=== PATIENT | male | born 1980 | race Caucasian/White ===

== ENCOUNTER 2019-05-27 22:33 | Inpatient (IN) | payer MEDICAID, SELFPAY ==
[~2019-05-27] VITALS: Ht 172.7 cm; Wt 82.7 kg
[2019-05-27 23:58] LABS: AMPHETAMINES LEVEL URINE NEGATIVE (NEGATIVE); BARBITURATES URINE NEGATIVE (NEGATIVE); BENZODIAZEPINES URINE NEGATIVE (NEGATIVE); CANNABINOIDS URINE NEGATIVE (NEGATIVE); COCAINE METABOLITE URINE NEGATIVE (NEGATIVE); METHADONE URINE NEGATIVE (NEGATIVE); OPIATES URINE NEGATIVE (NEGATIVE); PHENCYCLIDINE URINE NEGATIVE (NEGATIVE)
[2019-05-28 00:19] LABS: ACETAMINOPHEN LEVEL < 2.0 UG/ML (10.0-30.0); ALT/SGPT 39 U/L (12-78); BILIRUBIN,DIRECT 0.3 MG/DL (0.0-0.2); BILIRUBIN,TOTAL 1.1 MG/DL (0.2-1.0); BLOOD UREA NITROGEN 11 MG/DL (7-18); CALCIUM LEVEL 8.9 MG/DL (8.5-10.1); CARBON DIOXIDE LEVEL 28 MEQ/L (21-32); CHLORIDE LEVEL 105 MEQ/L (98-107); CREATININE FOR GFR 0.78 MG/DL (0.70-1.30); ETHYL ALCOHOL (ETHANOL) < 0.003 % (0.000-0.010); GLOMERULAR FILTRATION RATE > 60.0 (>60); GLUCOSE, FASTING 97 MG/DL (70-100); POTASSIUM SERUM 3.6 MEQ/L (3.5-5.1); SALICYLATE LEVEL < 1.7 MG/DL (5.0-30.0); SODIUM LEVEL 141 MEQ/L (136-145); TOTAL PROTEIN 7.4 GM/DL (6.4-8.2)
[2019-05-28 00:20] LABS: HEMOGLOBIN 15.6 g/dl (13.5-17.5); RED BLOOD COUNT 5.24 10^6/uL (4.30-6.10); WHITE BLOOD COUNT 11.8 10^3/uL (4.0-10.0)
[2019-05-28 00:21] LABS: HEMATOCRIT 46.9 % (42.0-52.0); MEAN CORPUSCULAR HEMOGLOBIN 29.8 pg (27.0-33.0); MEAN CORPUSCULAR HGB CONC 33.3 g/dl (32.0-36.5); MEAN CORPUSCULAR VOLUME 89.5 fl (80.0-96.0); PLATELET COUNT, AUTOMATED 281 10^3/uL (150-450)
--- NOTE | 2019-05-28 01:21 | REPVR ---
PROCEDURE INFORMATION: Exam: CT Head Without Contrast Exam date and time: 05/27/2019 11:19 PM Age: 38 years old Clinical indication: Altered mental status/memory loss; Confusion or disorientation; Additional info: AMS TECHNIQUE: Imaging protocol: Computed tomography of the head without contrast. Radiation optimization: All CT scans at this facility use at least one of these dose optimization techniques: automated exposure control; mA and/or kV adjustment per patient size (includes targeted exams where dose is matched to clinical indication); or iterative reconstruction. COMPARISON: CT Head without contrast 03/07/2013 6:31 PM FINDINGS: Brain: Motion artifact limits this study. The white-monroe differentiation is preserved demonstrating no definitive acute territorial type infarct. No definitive acute intracranial hemorrhage is visualized. No intracranial mass effect. Low-lying cerebellar tonsils are identified. Midline shift: There is no midline shift. Ventricles: No ventriculomegaly. Bones/joints: The calvarium demonstrates no evidence for a depressed fracture. Sinuses: Visualized sinuses are unremarkable. No fluid levels. Mastoid air cells: No mastoid effusion. Soft tissues: Mild soft tissue swelling/hematoma involving the frontal scalp. IMPRESSION: 1. No definitive acute intracranial abnormality. 2. Mild soft tissue swelling/hematoma involving the frontal scalp. 3. If further evaluation is clinically indicated, an MRI of the brain is recommended. Electronically signed by: Desmond Billingsley On 05/28/2019 01:21:09 AM
[2019-05-28] MEDS ORDERED: MAALOX 30 ML SUSP *UDC PO PRN (02:00)
[2019-05-28] MEDS ORDERED: MOM 30ML SUSPENSION UDC PO PRN (02:00)
[2019-05-28] MEDS: ACETAMINOPHEN TAB 650MG DOSE (2X325MG) PO PRN ×2 (02:02→08:18)
[2019-05-28 03:05] VITALS: BP 137/83
[2019-05-28] MEDS: OLANZapine ORAL DISINTEGRATING TAB 5MG PO PRN ×2 (03:17→18:00)
[2019-05-28 06:08] VITALS: BP 130/88
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
[2019-05-28] MEDS ORDERED: PALIPERIDONE 3 MG ER TAB (INVEGA) PO ONE (12:00)
[2019-05-28 16:32] VITALS: BP 135/71
[2019-05-28] MEDS: PALIPERIDONE 3 MG ER TAB (INVEGA) PO SCH (20:51)
[2019-05-29] MEDS: ACETAMINOPHEN TAB 650MG DOSE (2X325MG) PO PRN ×3 (00:10→15:59)
[2019-05-29 06:17] VITALS: BP 130/80
--- NOTE | 2019-05-29 08:37 | HPEPDOC ---
[facility] Medical History & Physical Date of Admission May 28, 2019 Date of Service: May 28, 2019 History and Physical Chief Complain : Feels "insane and suicidal" and "I live in fantasy." History of present illness: This is the 38-year-old male with no significant medical history, comes to the psychiatric unit and we have been consulted for medical reasons. The patient said that states he hears a voice that sounds also reports hallucinations as well. Pt is making intermittent threatens to harm self and others, and as per the charts, pt attempted suicide by OD at age 15he tried to hang himself. States that he lost drugs. He is not been able to focus at one question and has achieved of thoughts and jumps from one onset of another. He has difficulty focusing on one question. He currently has been admitted to the psychiatric facility and the management will be as per him. He denies any shortness of breath, any chest pain, any headache. He states that he does not have any intentions of hurting himself or anybody else at this point of time. Family history. Hypertension. Social history. Occasional smoker. Accept recreational drug use. Past medical history none except for depression. Past surgical history none as per patient Review of systems. Pertinent positive findings as per HPI and is negative PHYSICAL EXAMINATION: General: The patient is awake, alert, oriented x3, sitting up in the bed in no apparent distress. Head and Neck Exam: Extraocular muscles intact. Pupils equally round and reactive to light. Mucous membranes are moist. Neck is supple. There is no jugular venous distention (JVD). Cardiovascular: S1 and S2, regular rate. No real edema Respiratory: Clear auscultation Abdomen: Soft. Positive bowel sounds. Nontender. No organomegaly. Genitourinary: Deferred Musculoskeletal: Clubbing of the fingernails, no cyanosis was noted. Central Nervous System (HULL DRAFTER): No focal deficit. Power is 5/5 in all extremities. Medications reviewed Radiology reviewed Assessment and plan 1. Decided ideation. Management is per psychiatry. 2. Possible bipolar disorder. Pertinent as per psychiatric Diet as per psychiatric Thank so much for consulting us on this patient Vital Signs Vital Signs Date Time Temp Pulse Resp B/P (MAP) Pulse Ox O2 Delivery O2 Flow Rate FiO2 05/28/19 06:08 98.6 85 20 130/88 (102) 05/28/19 03:05 97 Room Air Laboratory Data Labs 24H Laboratory Tests 2 05/27/19 23:22: Anion Gap 8, Glomerular Filtration Rate > 60.0, Calcium Level 8.9, Total Bilirubin 1.1H, Direct Bilirubin 0.3H, Aspartate Amino Transf (AST/SGOT) 28, Alanine Aminotransferase (ALT/SGPT) 39, Alkaline Phosphatase 70, Total Protein 7.4, Albumin 4.0, Albumin/Globulin Ratio 1.18, Thyroid Stimulating Hormone (TSH) 1.240, Salicylates Level < 1.7L, Urine Opiates Screen NEGATIVE, Urine Methadone Screen NEGATIVE, Acetaminophen Level < 2.0L, Urine Barbiturates Screen NEGATIVE, Urine Phencyclidine Screen NEGATIVE, Urine Amphetamines Screen NEGATIVE, Urine Benzodiazepines Screen NEGATIVE, Urine Cocaine Metabolite Screen NEGATIVE, Urine Cannabinoids Screen NEGATIVE, Ethyl Alcohol Level < 0.003 CBC/BMP Laboratory Tests 05/27/19 23:22 Home Medications No Active Prescriptions or Reported Meds Allergies Coded Allergies: Penicillins (Verified Allergy, Intermediate, rash, 05/27/19) A-FIB/CHADSVASC A-FIB History Current/History of A-Fib/PAF?: No Current PO Anticoag Therapy: No DIEUDONNE MATHIS MD May 28, 2019 10:06
[2019-05-29] MEDS: PALIPERIDONE 3 MG ER TAB (INVEGA) PO SCH ×2 (10:01→20:40)
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
[2019-05-29] MEDS ORDERED: chlorproMAZINE 25 MG TAB (Q0161) PO ONE (11:00)
[2019-05-29] MEDS ORDERED: LORazepam 2 MG TAB PO PRN (11:00)
[2019-05-29] MEDS ORDERED: chlorproMAZINE 25 MG TAB (Q0161) PO PRN (11:00)
[2019-05-29] MEDS: CEPACOL LOZENGE PO PRN ×2 (14:46→21:51)
[2019-05-29 16:07] VITALS: BP 148/78
[2019-05-29] MEDS: chlorproMAZINE 25 MG TAB (Q0161) PO SCH (20:39)
[2019-05-30] MEDS: ACETAMINOPHEN TAB 650MG DOSE (2X325MG) PO PRN (00:05)
[2019-05-30] MEDS: traZODone 50 MG TAB PO PRN ×2 (01:14→22:48)
[2019-05-30] MEDS: LORazepam 2 MG TAB PO PRN ×2 (01:14→20:48)
[2019-05-30 06:37] VITALS: BP 126/79
[2019-05-30] MEDS: chlorproMAZINE 25 MG TAB (Q0161) PO SCH ×2 (09:39→20:29)
[2019-05-30] MEDS: PALIPERIDONE 3 MG ER TAB (INVEGA) PO SCH ×2 (09:39→20:29)
[2019-05-30] MEDS: CEPACOL LOZENGE PO PRN (14:24)
--- NOTE | 2019-05-30 15:54 | MHIPN ---
DATE: 05/30/2019 VITAL SIGNS: Blood pressure 126/79, pulse 91, temperature 97.9. CHIEF COMPLAINT: Says feels better. SUBJECTIVE: He is seen for followup in the presence of staff. Says has been feeling better overall, in that he has more time to think about matters while in the hospital, he is away from his stressors. He says that he still struggles with sleep and feels that he sleeps only for a short while periodically. Appetite is okay. He says his mind still races quite quickly but possibly less intensely than it used to. MENTAL STATUS EXAMINATION: Fair hygiene, cooperative. There is no agitation. No psychomotor retardation. He appears a bit intense. Cooperative overall. Coherent for the most part, occasionally tangential. Affect is somewhat restricted in range. Denies any suicidal thoughts or intents. No homicidal ideas or intents. Currently, no overt psychotic features elicited, though these may be "just under the surface." Judgment and insight remain compromised. He is alert and oriented. ASSESSMENT: 1. Schizophrenia by history. 2. History of polysubstance abuse. PLAN: Continue current care, observations. Encourage participation with activities in the unit. He is to continue with the Thorazine he is on. He is also on paliperidone (Invega). Further recommendations will be made depending on the clinical picture.
[2019-05-30 15:58] VITALS: BP 137/76
[2019-05-31] MEDS: CEPACOL LOZENGE PO PRN ×2 (03:28→18:03)
[2019-05-31] MEDS: ACETAMINOPHEN TAB 650MG DOSE (2X325MG) PO PRN (03:29)
[2019-05-31] MEDS: chlorproMAZINE 25 MG TAB (Q0161) PO SCH ×2 (05:03→20:21)
[2019-05-31 06:44] VITALS: BP 133/69
[2019-05-31] MEDS: PALIPERIDONE 3 MG ER TAB (INVEGA) PO SCH ×2 (08:01→20:20)
[2019-05-31] MEDS: LORazepam 2 MG TAB PO PRN ×2 (09:53→18:32)
[2019-05-31 15:38] VITALS: BP 118/62
[2019-05-31] MEDS: traZODone 50 MG TAB PO PRN (20:20)
--- NOTE | 2019-05-31 20:39 | MHIPN ---
DATE: 05/31/2019 VITAL SIGNS: Blood pressure 133/69, pulse 108, temperature 98.6. CHIEF COMPLAINT: Feels upset. SUBJECTIVE: He is seen for followup, in the presence of staff. He indicated that he had woke up upset, various factors, but is vague in articulating them, is tangential in thought. MENTAL STATUS EXAMINATION: He is neat. He is cooperative though a bit guarded. No agitation. No psychomotor retardation. Appears mildly irritable with a congruent affect. At times appears a bit tense. Denies any suicidal thoughts or intents, though had alluded to that earlier. Denies any thoughts of harming anyone else. Does not appear internally preoccupied. No overt delusions, but these appear to be under the surface. Judgment and insight are poor. ASSESSMENT: 1. Schizophrenia. 2. History of polysubstance abuse. PLAN: He is more irritable, possibly internally preoccupied. Continue current care, observations. Has been complaining of possibly painful urination. We will monitor this. He is to continue the Invega at 6 mg daily, Thorazine 100 mg daily in divided doses. He is to be encouraged to participate in activities in the unit as tolerated. Further recommendations will be made depending on the clinical picture and he will be seeing the assigned psychiatrist tomorrow, as well as the treatment team.
[2019-06-01 06:43] VITALS: BP 121/73
[2019-06-01] MEDS: chlorproMAZINE 25 MG TAB (Q0161) PO SCH ×2 (08:29→20:29)
[2019-06-01] MEDS: PALIPERIDONE 3 MG ER TAB (INVEGA) PO SCH (08:29)
[2019-06-01] MEDS ORDERED: PALIPERIDONE 3 MG ER TAB (INVEGA) PO ONE (10:15)
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
[2019-06-01 16:39] VITALS: BP 136/82
[2019-06-01] MEDS: PALIPERIDONE 6 MG ER TAB (INVEGA) PO SCH (20:29)
[2019-06-01] MEDS: traZODone 50 MG TAB PO PRN (20:30)
[2019-06-01] MEDS: CEPACOL LOZENGE PO PRN (22:35)
[2019-06-02] MEDS: LORazepam 2 MG TAB PO PRN (00:36)
[2019-06-02] MEDS ORDERED: chlorproMAZINE 25 MG TAB (Q0161) PO ONE (01:15)
[2019-06-02 06:09] VITALS: BP 132/86
[2019-06-02] MEDS: chlorproMAZINE 25 MG TAB (Q0161) PO SCH ×2 (08:01→20:18)
[2019-06-02] MEDS: PALIPERIDONE 6 MG ER TAB (INVEGA) PO SCH (08:01)
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
[2019-06-02] MEDS ORDERED: BENZTROPINE 0.5 MG TAB PO ONE (09:15)
[2019-06-02] MEDS: ACETAMINOPHEN TAB 650MG DOSE (2X325MG) PO PRN (12:00)
[2019-06-02 16:12] VITALS: BP 134/70
[2019-06-02] MEDS: CEPACOL LOZENGE PO PRN (16:19)
[2019-06-02] MEDS: BENZTROPINE 0.5 MG TAB PO SCH (20:17)
[2019-06-02] MEDS: traZODone 50 MG TAB PO PRN (20:18)
[2019-06-03 06:25] VITALS: BP 127/79
[2019-06-03] MEDS: BENZTROPINE 0.5 MG TAB PO SCH ×2 (08:26→21:57)
[2019-06-03] MEDS: chlorproMAZINE 25 MG TAB (Q0161) PO SCH ×2 (08:26→21:57)
[2019-06-03] MEDS: ACETAMINOPHEN TAB 650MG DOSE (2X325MG) PO PRN (15:12)
[2019-06-03 16:34] VITALS: BP 126/66
[2019-06-03] MEDS: LORazepam 2 MG TAB PO PRN (18:01)
[2019-06-04 06:19] VITALS: BP 134/62
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
[2019-06-04] MEDS: BENZTROPINE 0.5 MG TAB PO SCH ×2 (09:27→21:50)
[2019-06-04] MEDS: chlorproMAZINE 25 MG TAB (Q0161) PO SCH ×2 (09:28→21:50)
[2019-06-04 09:48] LABS: ALBUMIN 3.2 GM/DL (3.2-5.2); ALT/SGPT 37 U/L (12-78); BILIRUBIN,TOTAL 0.4 MG/DL (0.2-1.0); BLOOD UREA NITROGEN 13 MG/DL (7-18); CALCIUM LEVEL 8.5 MG/DL (8.5-10.1); CARBON DIOXIDE LEVEL 27 MEQ/L (21-32); CHLORIDE LEVEL 107 MEQ/L (98-107); CPK CREATINE PHOSPHOKINASE 111 U/L (39-308); GLOMERULAR FILTRATION RATE > 60.0 (>60); GLUCOSE, FASTING 112 MG/DL (70-100); POTASSIUM SERUM 3.9 MEQ/L (3.5-5.1); SODIUM LEVEL 141 MEQ/L (136-145); TOTAL PROTEIN 6.4 GM/DL (6.4-8.2)
[2019-06-04] MEDS: ACETAMINOPHEN TAB 650MG DOSE (2X325MG) PO PRN (14:50)
[2019-06-04 15:58] VITALS: BP 125/72
[2019-06-04] MEDS: CEPACOL LOZENGE PO PRN (19:38)
[2019-06-05 06:30] VITALS: BP 131/74
[2019-06-05] MEDS: chlorproMAZINE 25 MG TAB (Q0161) PO SCH ×2 (09:03→20:39)
[2019-06-05] MEDS: BENZTROPINE 0.5 MG TAB PO SCH ×2 (09:03→20:39)
--- NOTE | 2019-06-05 12:53 | MHIPN ---
DATE: 06/05/2019 VITAL SIGNS: Temperature 98.5, pulse 91, respirations 12, blood pressure 131/74. CURRENT MEDICATIONS: - Prolixin 10 mg twice a day - chlorpromazine 25 mg twice a day - Cogentin 0.5 mg twice a day - Ativan 2 mg every four hours as needed - trazodone 50 mg at bedtime as needed This is a 38-year-old white male with a history of schizophrenia, being treated by Dr. Mercado, and is now being seen by myself in her absence. The patient was admitted in a psychotic state. He was initially given Invega 6 mg per day with little benefit. He was then switched to Prolixin and Thorazine combination by Dr. Mercado with improvement noted. He tolerated the Prolixin well but was somewhat sedated on the Thorazine. Subsequently, the Thorazine dose has been reduced somewhat. The patient's behavior has been more appropriate in the milieu. The patient is still reporting some depressive symptoms. His appetite is good. He is sleeping well at night with his medication. He feels rested in the morning. MENTAL STATUS EXAMINATION: The patient is alert, oriented and cooperative. Eye contact is reasonably good. No signs of agitation. The patient is dressed casually. Speech is somewhat loose, tangential and disorganized. The patient appears euthymic but reports depressed mood with some suicidal thoughts but no active intent. The patient has been hearing auditory hallucinations but minimizes it. Paranoia is mild to moderate. Insight and judgment remain poor. No signs of cognitive deficits. DIAGNOSES: 1. Schizophrenia. 2. Polysubstance abuse history. ASSESSMENT: The patient appears to be responding well to medications and milieu therapy. PLAN: Continue present management.
[2019-06-05] MEDS: LORazepam 2 MG TAB PO PRN (13:29)
[2019-06-05 16:00] VITALS: BP 120/66
[2019-06-05] MEDS: traZODone 50 MG TAB PO PRN (20:39)
[2019-06-06] MEDS: LORazepam 2 MG TAB PO PRN (02:06)
[2019-06-06 06:18] VITALS: BP 122/72
[2019-06-06] MEDS: chlorproMAZINE 25 MG TAB (Q0161) PO SCH ×2 (09:14→20:25)
[2019-06-06] MEDS: BENZTROPINE 0.5 MG TAB PO SCH ×2 (09:15→20:25)
[2019-06-06 16:06] VITALS: BP 124/68
[2019-06-07] MEDS: traZODone 50 MG TAB PO PRN ×2 (00:11→20:52)
[2019-06-07 05:58] VITALS: BP 124/77
[2019-06-07] MEDS: chlorproMAZINE 25 MG TAB (Q0161) PO SCH ×2 (08:39→20:52)
[2019-06-07] MEDS: BENZTROPINE 0.5 MG TAB PO SCH ×2 (08:39→20:52)
[2019-06-07 16:26] VITALS: BP 117/69
[2019-06-07] MEDS ORDERED: zolPIDEM TARTRATE 5 MG TAB PO ONE (23:45)
[2019-06-08] MEDS: BENZTROPINE 0.5 MG TAB PO SCH ×2 (09:24→20:01)
--- NOTE | 2019-06-08 11:34 | MHIPNPDOC ---
[facility] Progress Note Progress Note DATE OF SERVICE: 06/08/19 HISTORY: This is a 38-year-old white male with a history of schizophrenia, being treated by Dr. Mercado, and is now being seen by Dr. Gaston in her absence. The patient was admitted in a psychotic state when he had tried to walk from [place] to [place] in freezing weather with no jacket. He was initially given Invega 6 mg per day with little benefit. He was then switched to Prolixin and Thorazine combination by Dr. Mercado with improvement noted. He tolerated the Prolixin well but was somewhat sedated on the Thorazine. Subsequently, the Thorazine dose has been reduced. The patient's behavior has been appropriate in the milieu. His appetite is good. He stated that he "slept all weekend" but it should be noted that Dr Gaston was called to prescribe Zolpidem last night at 11:45 pm due to difficulty sleeping. He feels rested this morning. VITAL SIGNS: See below. NEW TEST RESULTS: See below. CURRENT MEDICATIONS: See below. MENTAL STATUS EXAMINATION: Patient is a 38-year old male, who is clean and appropriate. Speech: Is clear, normal volume, regular rate and rhythm. Language skills are intact. Thought processes including: logical and linear. Thought content: more appropriate and no longer bizarre, denies SI, HI, AVH, and delusions. Abstract reasoning, and computation: intact. Description of associations: denies. Description of abnormal or psychotic thoughts: denies. Judgment: poor. Insight: poor Orientation: AAOx3. Recent and remote memory: intact. Attention span and concentration: intact. Language: intact. Fund of knowledge: intact. Mood: "Alright." Affect: full, appropriate and improved from a week ago. DIAGNOSES: 1. Schizophrenia. 2. Polysubstance abuse history. ASSESSMENT: Pt seen this am after waking up and appears to be less anxious, paranoid, and does not appear to be reacting to internal stimuli. He appears more focused during interview and states he continues to feel "like Donnie". He is less bizarre, responding to internal stimuli, paranoid, and disorganized. He is less associative, tangential, disorganized. His insight has continued to improve. Of note, he appeared sedated, but Dr Gaston was called on Thursday 06/07 with the concern the pt had problems sleeping and subsequently Dr Gaston prescribed Zolpidem at 1145 pm. He does not appear to be at risk of either harming others or himself due to psychosis and paranoia. He was cooperative during interview. Pt denies SI, HI, AVH, and delusions. Pt feels safe in [facility]. MANAGEMENT PLAN: Medications - Prolixin 10 mg twice a day - chlorpromazine 25 mg twice a day - Cogentin 0.5 mg twice a day - Ativan 2 mg every four hours as needed - trazodone 50 mg at bedtime as needed TIME SPENT: 30 minutes. Vital Signs Vital Signs Date Time Temp Pulse Resp B/P (MAP) Pulse Ox O2 Delivery O2 Flow Rate FiO2 06/07/19 16:26 98.4 90 18 117/69 (85) 06/05/19 06:30 Room Air Current Medications Current Medications Medications (Trade) Dose Ordered Sig/Dom Route PRN Reason Start Time Stop Time Status Last Admin Dose Admin Acetaminophen (Tylenol Tab) 650 mg Q6HP PRN PO HEADACHE or DISCOMFORT 05/28/19 02:00 06/04/19 14:50 Al Hydrox/Mg Hydrox/Simethicone (Mylanta) 30 ml Q4HP PRN PO HEARTBURN/INDIGESTION 05/28/19 02:00 06/01/19 20:30 Benztropine Mesylate (Cogentin) 0.5 mg BID PO 06/02/19 21:00 06/08/19 09:24 Cetylpyridinium Chloride (Cepacol) 1 dony Q2HP PRN PO COUGH 05/29/19 14:30 06/04/19 19:38 Chlorpromazine HCl (Thorazine) 25 mg BID PO 06/04/19 09:00 06/08/19 08:45 DC 06/07/19 20:52 Chlorpromazine HCl (Thorazine) 50 mg BID PO 05/29/19 21:00 06/04/19 08:53 DC 06/03/19 21:57 Chlorpromazine HCl (Thorazine) 50 mg QAMP PRN PO AGITATION 05/29/19 11:00 06/01/19 16:29 Fluphenazine HCl (Prolixin) 10 mg BID PO 06/02/19 21:00 12/30/19 09:24 Home Med (Med Rec Complete!) ASDIRECTED XX 05/28/19 00:15 05/28/19 00:03 DC Lorazepam (Ativan) 2 mg Q4DP PRN PO ANXIETY/AGITATION 05/29/19 11:00 05/29/19 11:45 DC Lorazepam (Ativan) 2 mg Q4HP PRN PO ANXIETY/AGITATION 05/29/19 11:45 06/06/19 02:06 Magnesium Hydroxide (Milk Of Magnesia) 30 ml DAILYPRN PRN PO CONSTIPATION 05/28/19 02:00 Olanzapine (ZyPREXA ZYDIS) 5 mg Q6HP PRN PO AGITATION 05/28/19 02:00 05/29/19 10:49 DC 05/28/19 18:00 Paliperidone (Invega) 3 mg BID PO 05/28/19 21:00 06/01/19 10:19 DC 06/01/19 08:29 Paliperidone (Invega) 6 mg BID PO 06/01/19 21:00 06/02/19 09:14 DC 06/02/19 08:01 Trazodone HCl (Desyrel) 50 mg QHSP PRN PO INSOMNIA 05/28/19 02:00 06/08/19 08:45 DC 06/07/19 20:52 Trazodone HCl (Desyrel) 100 mg QHSP PRN PO INSOMNIA 06/08/19 08:45 Allergies Coded Allergies: Penicillins (Verified Allergy, Intermediate, rash, 05/27/19) TARYN INIGUEZ-IV Jun 08, 2019 11:23 SHAWNA GASTON MD Jun 08, 2019 12:49
[2019-06-08 17:01] VITALS: BP 103/62
[2019-06-08] MEDS: traZODone 50 MG TAB PO PRN (20:02)
[2019-06-09 06:24] VITALS: BP 97/55
[2019-06-09] MEDS: BENZTROPINE 0.5 MG TAB PO SCH ×2 (09:35→20:31)
[2019-06-09] MEDS ORDERED: fluPHENAZine DECAN 25MG/ML 5ML VIAL (J2680) IM SCH (11:00)
--- NOTE | 2019-06-09 11:37 | MHIPNPDOC ---
[facility] Progress Note Progress Note DATE OF SERVICE: 06/09/19 HISTORY: This is a 38-year-old white male with a history of schizophrenia, being treated by Dr. Mercado, and is now being seen by Dr. Yarbrough in her absence. The patient was admitted in a psychotic state when he had tried to walk from [place] to [place] in freezing weather with no jacket. He was initially given Invega 6 mg per day with little benefit. Thorazine was discontinued because of sedation. The patient's behavior has been appropriate in the milieu. His appetite is good. He stated that he "slept all weekend" but it should be noted that Dr Yarbrough was called to prescribe Zolpidem last night at 11:45 pm due to difficulty sleeping. He feels rested this morning. VITAL SIGNS: See below. NEW TEST RESULTS: See below. CURRENT MEDICATIONS: See below. MENTAL STATUS EXAMINATION: Patient is a 38-year old male, who is clean and appropriate. Speech: Is clear, normal volume, regular rate and rhythm. Language skills are intact. Thought processes including: logical and linear. Thought content: appropriate and forward thinking, denies SI, HI, AVH, and delusions. Abstract reasoning, and computation: intact. Description of associations: denies. Description of abnormal or psychotic thoughts: denies. Judgment: poor. Insight: poor Orientation: AAOx3. Recent and remote memory: intact. Attention span and concentration: intact. Language: intact. Fund of knowledge: intact. Mood: "alright." Affect: full, appropriate DIAGNOSES: 1. Schizophrenia. 2. Polysubstance abuse history. ASSESSMENT: Pt seen this am after waking up and appears to be less anxious, paranoid, and does not appear to be reacting to internal stimuli. He appears more focused during interview and states he continues to feel "like Donnie". He is hopeful- he recognizes that his insight has continued to improve, is willing to comply with his medications and is wondering when he will be discharged. Pt states that the medications are helpful and that they are beneficial. Discussed starting prolixin IM and he was agreeable to this change. He does not appear to be at risk of either harming others or himself due to psychosis and paranoia. He was cooperative during interview. Pt denies SI, HI, AVH, and delusions. Pt feels safe in [facility]. MANAGEMENT PLAN: Medications - Prolixin 25 mg IM [id number] - Prolixin 10 mg twice a day - chlorpromazine 25 mg twice a day - Cogentin 0.5 mg twice a day - Ativan 2 mg every four hours as needed - trazodone 50 mg at bedtime as needed TIME SPENT: 30 minutes. Vital Signs Vital Signs Date Time Temp Pulse Resp B/P (MAP) Pulse Ox O2 Delivery O2 Flow Rate FiO2 06/09/19 06:24 98.1 78 14 97/55 (69) 06/05/19 06:30 Room Air Current Medications Current Medications Medications (Trade) Dose Ordered Sig/Dom Route PRN Reason Start Time Stop Time Status Last Admin Dose Admin Acetaminophen (Tylenol Tab) 650 mg Q6HP PRN PO HEADACHE or DISCOMFORT 05/28/19 02:00 06/04/19 14:50 Al Hydrox/Mg Hydrox/Simethicone (Mylanta) 30 ml Q4HP PRN PO HEARTBURN/INDIGESTION 05/28/19 02:00 06/01/19 20:30 Benztropine Mesylate (Cogentin) 0.5 mg BID PO 06/02/19 21:00 06/09/19 09:35 Cetylpyridinium Chloride (Cepacol) 1 dony Q2HP PRN PO COUGH 05/29/19 14:30 06/04/19 19:38 Chlorpromazine HCl (Thorazine) 25 mg BID PO 06/04/19 09:00 06/08/19 08:45 DC 06/07/19 20:52 Chlorpromazine HCl (Thorazine) 50 mg BID PO 05/29/19 21:00 06/04/19 08:53 DC 06/03/19 21:57 Chlorpromazine HCl (Thorazine) 50 mg QAMP PRN PO AGITATION 05/29/19 11:00 06/01/19 16:29 Fluphenazine Decanoate (Prolixin Decanoate) 25 mg Q14D@09 IM 06/09/19 11:00 06/09/19 10:54 Fluphenazine HCl (Prolixin) 10 mg BID PO 06/02/19 21:00 06/09/19 09:35 Home Med (Med Rec Complete!) ASDIRECTED XX 05/28/19 00:15 05/28/19 00:03 DC Lorazepam (Ativan) 2 mg Q4DP PRN PO ANXIETY/AGITATION 05/29/19 11:00 05/29/19 11:45 DC Lorazepam (Ativan) 2 mg Q4HP PRN PO ANXIETY/AGITATION 05/29/19 11:45 06/06/19 02:06 Magnesium Hydroxide (Milk Of Magnesia) 30 ml DAILYPRN PRN PO CONSTIPATION 05/28/19 02:00 Olanzapine (ZyPREXA ZYDIS) 5 mg Q6HP PRN PO AGITATION 05/28/19 02:00 05/29/19 10:49 DC 05/28/19 18:00 Paliperidone (Invega) 3 mg BID PO 05/28/19 21:00 06/01/19 10:19 DC 06/01/19 08:29 Paliperidone (Invega) 6 mg BID PO 06/01/19 21:00 06/02/19 09:14 DC 06/02/19 08:01 Trazodone HCl (Desyrel) 50 mg QHSP PRN PO INSOMNIA 05/28/19 02:00 06/08/19 08:45 DC 06/07/19 20:52 Trazodone HCl (Desyrel) 100 mg QHSP PRN PO INSOMNIA 06/08/19 08:45 06/08/19 20:02 Allergies Coded Allergies: Penicillins (Verified Allergy, Intermediate, rash, 05/27/19) TARYN INIGUEZ OMS-IV Jun 09, 2019 11:34
[2019-06-09] MEDS ORDERED: LORazepam 1 MG TAB PO PRN (14:15)
[2019-06-09 17:28] VITALS: BP 117/56
[2019-06-10 06:38] VITALS: BP 127/74
[2019-06-10] MEDS: BENZTROPINE 0.5 MG TAB PO SCH (09:18)
[2019-06-10] MEDS ORDERED: FLUP5TA PO (14:03)
[2019-06-10 15:25] VITALS: BP 125/65
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
[2019-06-10] MEDS: traZODone 50 MG TAB PO PRN (22:58)
[2019-06-11 06:17] VITALS: BP 106/58
--- NOTE | 2019-06-11 12:39 | MHIPNPDOC ---
[facility] Progress Note Progress Note DATE OF SERVICE: 06/11/19 patient seen for d/c MSE and note for return to work, reviewed previous notes and d/c summary from Dr. Yarbrough. MSE Gen: well dressed good hygeine, friendly Cog: A&Ox3 TP: Linear TC: denies SI,HI, AH or VH I/J: appear fair Precep: No signs of response to internal stimuli, good associations Computation: appears intact A/P Return to work letter filled out patient wants to have, 2 days to rest after d/c, which would be a good plan to help recover. Time spent 20 mins on discharge coordination Vital Signs Vital Signs Date Time Temp Pulse Resp B/P (MAP) Pulse Ox O2 Delivery O2 Flow Rate FiO2 06/11/19 06:17 97.9 78 18 106/58 (74) 06/10/19 09:09 Room Air Current Medications Current Medications Medications (Trade) Dose Ordered Sig/Dom Route PRN Reason Start Time Stop Time Status Last Admin Dose Admin Acetaminophen (Tylenol Tab) 650 mg Q6HP PRN PO HEADACHE or DISCOMFORT 05/28/19 02:00 06/04/19 14:50 Al Hydrox/Mg Hydrox/Simethicone (Mylanta) 30 ml Q4HP PRN PO HEARTBURN/INDIGESTION 05/28/19 02:00 06/01/19 20:30 Benztropine Mesylate (Cogentin) 0.5 mg BID PO 06/02/19 21:00 06/10/19 12:34 DC 06/10/19 09:18 Cetylpyridinium Chloride (Cepacol) 1 dony Q2HP PRN PO COUGH 05/29/19 14:30 06/04/19 19:38 Chlorpromazine HCl (Thorazine) 25 mg BID PO 06/04/19 09:00 06/08/19 08:45 DC 06/07/19 20:52 Chlorpromazine HCl (Thorazine) 50 mg BID PO 05/29/19 21:00 06/04/19 08:53 DC 06/03/19 21:57 Chlorpromazine HCl (Thorazine) 50 mg QAMP PRN PO AGITATION 05/29/19 11:00 06/09/19 13:47 DC 06/01/19 16:29 Fluphenazine Decanoate (Prolixin Decanoate) 25 mg Q14D@09 IM 06/09/19 11:00 06/09/19 10:54 Fluphenazine HCl (Prolixin) 10 mg BID PO 06/02/19 21:00 06/10/19 12:34 DC 06/10/19 09:18 Fluphenazine HCl (Prolixin) 10 mg QHS PO 06/10/19 21:00 06/10/19 20:37 Home Med (Med Rec Complete!) ASDIRECTED XX 05/28/19 00:15 05/28/19 00:03 DC Lorazepam (Ativan) 1 mg Q4HP PRN PO ANXIETY/AGITATION 06/09/19 14:15 Lorazepam (Ativan) 2 mg Q4DP PRN PO ANXIETY/AGITATION 05/29/19 11:00 05/29/19 11:45 DC Lorazepam (Ativan) 2 mg Q4HP PRN PO ANXIETY/AGITATION 05/29/19 11:45 06/09/19 14:03 DC 06/06/19 02:06 Magnesium Hydroxide (Milk Of Magnesia) 30 ml DAILYPRN PRN PO CONSTIPATION 05/28/19 02:00 Olanzapine (ZyPREXA ZYDIS) 5 mg Q6HP PRN PO AGITATION 05/28/19 02:00 05/29/19 10:49 DC 05/28/19 18:00 Paliperidone (Invega) 3 mg BID PO 05/28/19 21:00 06/01/19 10:19 DC 06/01/19 08:29 Paliperidone (Invega) 6 mg BID PO 06/01/19 21:00 06/02/19 09:14 DC 06/02/19 08:01 Trazodone HCl (Desyrel) 50 mg QHSP PRN PO INSOMNIA 05/28/19 02:00 06/08/19 08:45 DC 06/07/19 20:52 Trazodone HCl (Desyrel) 100 mg QHSP PRN PO INSOMNIA 06/08/19 08:45 06/10/19 22:58 Allergies Coded Allergies: Penicillins (Verified Allergy, Intermediate, rash, 05/27/19) TEO BORJA DO Jun 11, 2019 12:39
== END 2019-06-11 12:40 | disposition home or self-care (01) | DRG 750 ==
LOC: M ED 22:33 → M ED INP 05-28 01:47 → M PSY 05-28 02:22
PROVIDERS: ADMIT Psychiatry & Neurology Psychiatry; ATTEND Psychiatry & Neurology Psychiatry
DX: F20.9 Schizophrenia, unspecified (principal); F19.10 Other psychoactive substance abuse, uncomplicated; Z88.0 Allergy status to penicillin; Z91.5 Personal history of self-harm

== ENCOUNTER 2019-06-22 05:52 | Emergency (ER) | payer MEDICAID ==
[~2019-06-22] VITALS: Ht 175.3 cm; Wt 84.1 kg
[~2019-06-22 05:52] MED LIST: FLUP5TA PO
--- NOTE | 2019-06-22 08:01 | REP ---
Chest x-ray: Two views. History: Ill feeling. Shaky. Comparison study March 12, 2013. Findings: There are two old healed rib fractures on the right posteriorly. The lungs are well inflated and clear. The pleural angles are sharp. Cardiomediastinal silhouette is unremarkable. There are degenerative changes in the thoracic spine. Pulmonary vasculature is not increased. Impression: No acute disease. Electronically Signed by Grady Abebe MD 06/22/2019 07:52 A
[2019-06-22 08:05] LABS: BASO # 0.1 10^3/uL (0.0-0.2); BASO % 0.6 % (0.0-1.0); EOS # 0.3 10^3/uL (0.0-0.5); EOS % 3.3 % (0.0-3.0); HEMATOCRIT 47.7 % (42.0-52.0); HEMOGLOBIN 15.6 g/dl (13.5-17.5); LYMPH # 3.6 10^3/uL (1.5-5.0); LYMPH % 36.2 % (24.0-44.0); MEAN CORPUSCULAR HEMOGLOBIN 29.2 pg (27.0-33.0); MEAN CORPUSCULAR HGB CONC 32.7 g/dl (32.0-36.5); MEAN CORPUSCULAR VOLUME 89.3 fl (80.0-96.0); MONO # 1.2 10^3/uL (0.0-0.8); MONO % 12.4 % (0.0-5.0); NEUTROPHILS # 4.7 10^3/uL (1.5-8.5); NEUTROPHILS % 47.2 % (36.0-66.0); PLATELET COUNT, AUTOMATED 266 10^3/uL (150-450); RED BLOOD COUNT 5.34 10^6/uL (4.30-6.10); WHITE BLOOD COUNT 9.9 10^3/uL (4.0-10.0)
[2019-06-22] MEDS ORDERED: ALPRAZolam 0.5 MG TAB PO ONE (08:15)
[2019-06-22 08:27] LABS: MONO SCRN NEGATIVE (NEGATIVE)
[2019-06-22 08:49] LABS: INFLUENZA A AMPLIFICATION NEGATIVE (NEGATIVE); INFLUENZA B AMPLIFICATION NEGATIVE (NEGATIVE)
[2019-06-22] MEDS ORDERED: XANA0.5T PO (10:47)
[2019-06-22 10:56] VITALS: BP 142/87
== END 2019-06-22 10:58 | disposition home or self-care (01) ==
LOC: M ED 05:52
DX: F41.9 Anxiety disorder, unspecified (principal); F17.200 Nicotine dependence, unspecified, uncomplicated; Z88.0 Allergy status to penicillin

== ENCOUNTER → 2019-07-15 | Outpatient (REF) | payer MEDICAID ==
[~2019-07-15] MED LIST changes: +XANA0.5T PO
[2019-07-15 18:08] LABS: BASO # 0.1 10^3/uL (0.0-0.2); BASO % 1.2 % (0.0-1.0); EOS # 0.6 10^3/uL (0.0-0.5); EOS % 6.6 % (0.0-3.0); HEMATOCRIT 50.7 % (42.0-52.0); HEMOGLOBIN 16.7 g/dl (13.5-17.5); LYMPH # 3.8 10^3/uL (1.5-5.0); MEAN CORPUSCULAR HEMOGLOBIN 29.3 pg (27.0-33.0); MEAN CORPUSCULAR HGB CONC 32.9 g/dl (32.0-36.5); MEAN CORPUSCULAR VOLUME 89.1 fl (80.0-96.0); MONO % 10.8 % (0.0-5.0); NEUTROPHILS % 41.2 % (36.0-66.0); PLATELET COUNT, AUTOMATED 263 10^3/uL (150-450); RED BLOOD COUNT 5.69 10^6/uL (4.30-6.10); WHITE BLOOD COUNT 9.6 10^3/uL (4.0-10.0)
[2019-07-15 18:16] LABS: ALBUMIN 4.1 GM/DL (3.2-5.2); ALT/SGPT 30 U/L (12-78); BILIRUBIN,TOTAL 0.6 MG/DL (0.2-1.0); BLOOD UREA NITROGEN 10 MG/DL (7-18); CALCIUM LEVEL 8.8 MG/DL (8.5-10.1); CARBON DIOXIDE LEVEL 31 MEQ/L (21-32); CHLORIDE LEVEL 106 MEQ/L (98-107); CHOLESTEROL LEVEL 213 MG/DL (<200); CHOLESTEROL RISK RATIO 6.085 (<5); CREATININE FOR GFR 0.78 MG/DL (0.70-1.30); FREE T4 1.16 NG/DL (0.76-1.46); GLOMERULAR FILTRATION RATE > 60.0 (>60); GLUCOSE, FASTING 92 MG/DL (70-100); HDL CHOLESTEROL 35 MG/DL (>40); LDL CHOLESTEROL 128 MG/DL (<100); NON-HDL-C 178 MG/DL; POTASSIUM SERUM 3.7 MEQ/L (3.5-5.1); SODIUM LEVEL 141 MEQ/L (136-145); TOTAL PROTEIN 7.5 GM/DL (6.4-8.2); TRIGLYCERIDES LEVEL 248 MG/DL (<150)
[2019-07-15 18:19] LABS: TOTAL 25(OH) VITAMIN D 15.9 NG/ML (30.0-100.0)
[2019-07-15 19:19] LABS: HEMOGLOBIN A1c 5.5 %
== END ==
LOC: M LAB REF 17:17
PROVIDERS: ATTEND Nurse Practitioner Family
DX: Z13.9 Encounter for screening, unspecified (principal); H91.93 Unspecified hearing loss, bilateral; F41.8 Other specified anxiety disorders; F20.89 Other schizophrenia

== ENCOUNTER → 2020-04-08 | Outpatient (CLI) | payer OTHER ==
[2020-04-08 17:06] LABS: BASO # 0.1 10^3/uL (0.0-0.2); BASO % 0.5 % (0.0-1.0); EOS # 0.2 10^3/uL (0.0-0.5); EOS % 1.9 % (0.0-3.0); HEMATOCRIT 50.7 % (42.0-52.0); HEMOGLOBIN 16.9 g/dl (13.5-17.5); LYMPH # 3.6 10^3/uL (1.5-5.0); LYMPH % 38.1 % (24.0-44.0); MEAN CORPUSCULAR HEMOGLOBIN 28.8 pg (27.0-33.0); MEAN CORPUSCULAR HGB CONC 33.3 g/dl (32.0-36.5); MEAN CORPUSCULAR VOLUME 86.4 fl (80.0-96.0); MONO # 0.8 10^3/uL (0.0-0.8); MONO % 8.4 % (0.0-5.0); NEUTROPHILS # 4.8 10^3/uL (1.5-8.5); NEUTROPHILS % 50.7 % (36.0-66.0); PLATELET COUNT, AUTOMATED 277 10^3/uL (150-450); RED BLOOD COUNT 5.87 10^6/uL (4.30-6.10); WHITE BLOOD COUNT 9.4 10^3/uL (4.0-10.0)
[2020-04-08 17:51] LABS: ALBUMIN 3.8 GM/DL (3.2-5.2); ALT/SGPT 30 U/L (12-78); BILIRUBIN,TOTAL 0.5 MG/DL (0.2-1.0); BLOOD UREA NITROGEN 5 MG/DL (7-18); CARBON DIOXIDE LEVEL 27 MEQ/L (21-32); CHLORIDE LEVEL 103 MEQ/L (98-107); CHOLESTEROL LEVEL 197 MG/DL (<200); CHOLESTEROL RISK RATIO 6.156 (<5); CREATININE FOR GFR 0.78 MG/DL (0.70-1.30); FREE T4 1.05 NG/DL (0.76-1.46); GLOMERULAR FILTRATION RATE > 60.0 (>60); GLUCOSE, FASTING 88 MG/DL (70-100); HDL CHOLESTEROL 32 MG/DL (>40); NON-HDL-C 165 MG/DL; POTASSIUM SERUM 3.9 MEQ/L (3.5-5.1); SODIUM LEVEL 138 MEQ/L (136-145); TOTAL 25(OH) VITAMIN D 8.6 NG/ML (30.0-100.0); TOTAL PROTEIN 7.6 GM/DL (6.4-8.2); TRIGLYCERIDES LEVEL 467 MG/DL (<150); VITAMIN B12 LEVEL 581 PG/ML (247-911)
[2020-04-08 18:17] LABS: HEMOGLOBIN A1c 5.1 %
== END ==
LOC: M WUC 13:07
PROVIDERS: ATTEND Nurse Practitioner Psychiatric/Mental Health
DX: F25.0 Schizoaffective disorder, bipolar type (principal)
CPT/HCPCS: 36415; 80053; 80061; 82306; 82607; 83036; 84439; 84443; 85025; G0480

== ENCOUNTER 2025-03-08 13:11 | Emergency (ER) | payer OTHER ==
[~2025-03-08] VITALS: Ht 175.3 cm; Wt 110.3 kg
[~2025-03-08 13:11] MED LIST changes: -FLUP5TA PO; +FLUP5TAB13 PO
[2025-03-08] MEDS ORDERED: NAPR-837 PO (17:57)
[2025-03-08] MEDS ORDERED: VENTAER INH (17:57)
[2025-03-08] MEDS ORDERED: BENZ200C70 PO (17:57)
[2025-03-08 18:00] VITALS: BP 155/84; TEMP 99.1; O2SAT 97
== END 2025-03-08 18:08 | disposition home or self-care (01) ==
LOC: M ED 13:11
DX: U07.1 COVID-19 (principal); Z20.822 Contact with and (suspected) exposure to COVID-19; F41.9 Anxiety disorder, unspecified; F32.A Depression, unspecified; F17.200 Nicotine dependence, unspecified, uncomplicated; Z88.0 Allergy status to penicillin

== ENCOUNTER → 2025-04-01 | Outpatient (CLI) | payer OTHER ==
[~2025-04-01] MED LIST changes: +BENZ200C70 PO; +NAPR-837 PO; +VENTAER INH
[2025-04-01 18:56] LABS: BASO # 0.1 10^3/uL (0.0-0.2); BASO % 0.4 % (0.0-1.0); EOS # 0.4 10^3/uL (0.0-0.5); EOS % 3.0 % (0.0-3.0); LYMPH # 3.9 10^3/uL (1.5-5.0); LYMPH % 33.0 % (24.0-44.0); MONO # 1.0 10^3/uL (0.0-0.8); MONO % 8.2 % (2.0-8.0); NEUTROPHILS # 6.5 10^3/uL (1.5-8.5); NEUTROPHILS % 55.1 % (36.0-66.0); PLATELET COUNT, AUTOMATED 311 10^3/uL (150-450)
[2025-04-01 19:01] LABS: ALT/SGPT 72 U/L (7.0-40); AST/SGOT 39 U/L (<34); CALCIUM LEVEL 8.7 MG/DL (8.5-10.1); CARBON DIOXIDE LEVEL 28 MMOL/L (20-31); CHLORIDE LEVEL 103 MMOL/L (98-107); CHOLESTEROL LEVEL 149 MG/DL (<200); CHOLESTEROL RISK RATIO 4.22 (<5); CREATININE FOR GFR 0.59 MG/DL (0.70-1.30); GLOMERULAR FILTRATION RATE > 90.0 (>60); LDL CHOLESTEROL 67.5 MG/DL (<100); NON-HDL-C 113.7 MG/DL; POTASSIUM SERUM 3.9 MMOL/L (3.5-5.1); SODIUM LEVEL 139 MMOL/L (136-145); TRIGLYCERIDES LEVEL 231 MG/DL (<150)
[2025-04-01 19:33] LABS: HIV 1&2 SCREEN NEGATIVE (NEGATIVE)
[2025-04-01 19:41] LABS: HEPATITIS C VIRUS ABY INDEX 0.05 INDEX (<0.8)
== END ==
LOC: M WUC 14:07
PROVIDERS: ATTEND Family Medicine
DX: Z00.01 Encounter for general adult medical examination with abnormal findings (principal); J45.909 Unspecified asthma, uncomplicated; M54.50 Low back pain, unspecified

== ENCOUNTER 2025-04-26 19:19 | Emergency (ER) | payer OTHER ==
[~2025-04-26] VITALS: Ht 177.8 cm; Wt 94.9 kg
[2025-04-26] MEDS: NS (Normal Saline) 0.9% 1,000 ML IV ONE (19:38)
[2025-04-26 19:48] LABS: VENOUS BASE EXCESS -1.4 (-2.0-2.0); VENOUS HCO3 24.1 MMOL/L (23.0-27.0); VENOUS O2 SATURATION 97.4 % (60.0-80.0); VENOUS PARTIAL PRESSURE CO2 43.0 mmHg (38.0-50.0); VENOUS PARTIAL PRESSURE O2 119.6 mmHg (30.0-50.0); VENOUS PH 7.366 UNITS (7.330-7.430); VENOUS STANDARD HCO3 23.3 MMOL/L; VENOUS TOTAL CO2 25.4 MMOL/L (24.0-28.0)
[2025-04-26 20:08] LABS: BASO # 0.1 10^3/uL (0.0-0.2); BASO % 0.7 % (0.0-1.0); EOS # 0.6 10^3/uL (0.0-0.5); EOS % 5.5 % (0.0-3.0); LYMPH # 3.2 10^3/uL (1.5-5.0); LYMPH % 30.0 % (24.0-44.0); MONO # 1.0 10^3/uL (0.0-0.8); MONO % 8.9 % (2.0-8.0); NEUTROPHILS # 5.8 10^3/uL (1.5-8.5); NEUTROPHILS % 54.7 % (36.0-66.0); PLATELET COUNT, AUTOMATED 244 10^3/uL (150-450)
[2025-04-26] MEDS: THIAMINE 100 MG TAB PO SCH (21:00)
[2025-04-26 21:38] LABS: KETONE, URINE AUTO RFX NEGATIVE (NEGATIVE); LEUKOCYTE ESTERASE UR AUTO RFX NEGATIVE (NEGATIVE); NITRITE, URINE AUTO RFX NEGATIVE (NEGATIVE); RBC, URINE AUTO RFX 0 /HPF (0-3); SQUAM EPITHELIAL CELL UR AURFX 0 /HPF (0-6); WBC, URINE AUTO RFX 0 /HPF (0-3)
[2025-04-26 21:57] LABS: BARBITURATES URINE NEGATIVE (NEGATIVE); BENZODIAZEPINES URINE NEGATIVE (NEGATIVE); COCAINE METABOLITE URINE NEGATIVE (NEGATIVE); METHADONE URINE NEGATIVE (NEGATIVE); OPIATES URINE NEGATIVE (NEGATIVE); PHENCYCLIDINE URINE NEGATIVE (NEGATIVE)
[2025-04-26 22:09] LABS: AMPHETAMINES LEVEL URINE POSITIVE (NEGATIVE); CANNABINOIDS URINE POSITIVE (NEGATIVE)
[2025-04-26 22:56] LABS: CK-MB VALUE MASS 16.5 NG/ML (<3.6)
[2025-04-26 22:58] LABS: CPK CREATINE PHOSPHOKINASE 360 U/L (46-171); MB/CK RELATIVE INDEX 4.58 (< OR =4)
[2025-04-26 23:17] LABS: CK-MB VALUE MASS 20.4 NG/ML (<3.6)
[2025-04-26 23:20] LABS: CPK CREATINE PHOSPHOKINASE 492.0 U/L (46-171); MB/CK RELATIVE INDEX 4.14 (< OR =4)
[2025-04-26 23:26] LABS: ALT/SGPT 90 U/L (7.0-40); AST/SGOT 61 U/L (<34); CALCIUM LEVEL 7.5 MG/DL (8.5-10.1); CARBON DIOXIDE LEVEL 23 MMOL/L (20-31); CHLORIDE LEVEL 113 MMOL/L (98-107); CREATININE FOR GFR 0.54 MG/DL (0.70-1.30); GLOMERULAR FILTRATION RATE > 90.0 (>60); POTASSIUM SERUM 3.3 MMOL/L (3.5-5.1); SALICYLATE LEVEL < 3.0 MG/DL (<30); SODIUM LEVEL 146 MMOL/L (136-145)
[2025-04-26 23:33] LABS: ETHYL ALCOHOL (ETHANOL) 0.316 % (0.000-0.010)
[2025-04-27 05:41] VITALS: BP 166/74
[2025-04-27 06:11] VITALS: O2SAT 98
[2025-04-27 06:21] VITALS: TEMP 97.5
[2025-04-27] MEDS ORDERED: ACETAMINOPHEN *IV* 1,000 MG in IV 1 EA IV ONE (07:20)
[2025-04-27] MEDS: IBUPROFEN 600 MG TAB PO ONE (07:33)
[2025-04-27] MEDS ORDERED: MULTIVITAMINS/MINERALS THERAP 1 TAB PO SCH (09:00)
[2025-04-27] MEDS ORDERED: FOLIC ACID 1 MG TAB PO SCH (09:00)
== END 2025-04-27 08:00 | disposition left against medical advice (07) ==
LOC: M ED 19:19
DX: F10.120 Alcohol abuse with intoxication, uncomplicated (principal); F43.0 Acute stress reaction; Z53.20 Procedure and treatment not carried out because of patient's decision for unspecified reasons; R94.31 Abnormal electrocardiogram [ECG] [EKG]; M50.321 Other cervical disc degeneration at C4-C5 level; M50.322 Other cervical disc degeneration at C5-C6 level; M48.02 Spinal stenosis, cervical region; Z88.0 Allergy status to penicillin; Y90.8 Blood alcohol level of 240 mg/100 ml or more
CPT/HCPCS: 51701; 70450; 71045; 72125; 80048; 80076; 80143; 80307; 81001; 82077; 82140; 82550; 82553; 82803; 83605; 83930; 84443; 84484; 85025; 93005; 93041; 94760; 96374; 96376; 99285; J2060